=== PATIENT | male | born 1985 | race Caucasian/White ===

== ENCOUNTER 2017-01-02 12:42 | Emergency (ER) | payer SELFPAY ==
[2017-01-02] MEDS ORDERED: DILAUDID IM ONE (16:30)
[2017-01-02] MEDS ORDERED: DELTASONE PO ONE (16:30)
[2017-01-02] MEDS ORDERED: ZOFRAN ODT PO ONE (16:30)
[2017-01-02] MEDS ORDERED: VALIUM PO ONE (16:30)
--- NOTE | 2017-01-02 16:30 | Emergency Department Report ---
ED Extremity Problem HPI - General Chief complaint: Extremity Injury, Lower Stated complaint: RT KNEE PAIN Time Seen by Provider: 01/02/17 16:18 Source: patient, family, EMS Mode of arrival: Wheelchair Limitations: Physical Limitation - History of Present Illness Initial comments: Patient here reports that he came by ambulance for Rt knee pain. She reports that his knee pain has been going on for a long time due to meniscus injury. He said that he ran out of his Lortab. He said he was recently admitted said [facility] psychiatric unit 4 months for depression, anxiety and insomnia. Said that they gave her a prescription for Lortab but he ran out. Reports his right knee pain is 10 out of 10 and achy and and swollen. Eyes any recent injury. He said his right knee pain flares With weather change. Denies any numbness or tingling to extremities. Denies any fever or chills. Denies any nausea vomiting. He said he does not have a primary care physician because his insurance ran out and he is trying to get reinstated. MD Complaint: extremity pain, joint swelling, joint paint -: year(s) Location: right, knee History of Same: Yes -: No myalgia, Yes arthralgia, No fever, No associated dyspnea, No associated chest pain Radiation: none Severity scale (0 -10): 10 Quality: aching Consistency: constant Improves with: nothing Worsens with: weight bearing, walking, palpation Associated Symptoms: denies other symptoms - Related Data Home Medications Medication Instructions Recorded Confirmed Last Taken HYDROcodone/APAP 10-325 [[place] 1 PO PRN 01/02/17 01/01/17 10-325 mg TAB] Previous Rx's Medication Instructions Recorded Last Taken Type traMADol [Ultram] 50 mg PO Q6HR PRN #20 tablet 01/02/17 Unknown Rx Allergies Allergy/AdvReac Type Severity Reaction Status Date / Time No Known Allergies Allergy Unverified 01/02/17 13:06 ED Review of Systems ROS: Stated complaint: RT KNEE PAIN Other details as noted in HPI Comment: All other systems reviewed and negative Constitutional: denies: chills, fever Respiratory: no symptoms reported Cardiovascular: denies: chest pain, palpitations, edema, syncope Gastrointestinal: denies: nausea, vomiting Musculoskeletal: joint swelling, arthralgia. denies: back pain, myalgia Skin: denies: rash Neurological: weakness (right knee which is chronic), abnormal gait (due to right knee pain). denies: headache, numbness, paresthesias, confusion ED Past Medical Hx - Past Medical History Previous Medical History?: Yes Hx Seizures: Yes Hx Psychiatric Treatment: Yes (anxiety, depression, insomnia, suicidal) Additional medical history: right knee pain - Surgical History Past Surgical History?: Yes Additional Surgical History: right knee surgery, Back surgery - Family History Family history: hypertension - Social History Smoking Status: Former Smoker Substance Use Type: Marijuana, Prescribed - Medications Home Medications: Home Medications Medication Instructions Recorded Confirmed Last Taken Type HYDROcodone/APAP 10-325 [[place] 1 PO PRN 01/02/17 01/01/17 History 10-325 mg TAB] traMADol [Ultram] 50 mg PO Q6HR PRN #20 tablet 01/02/17 Unknown Rx ED Physical Exam - General Limitations: Physical Limitation (he said that he mostly uses a wheelchair due to chronic pain.) General appearance: alert, in no apparent distress - Head Head exam: Present: atraumatic, normocephalic, normal inspection - Expanded Lower Extremity Exam Right Hip exam: Present: normal inspection, full ROM. Absent: tenderness, swelling, abrasion, laceration, ecchymosis, deformity, crepidus, dislocation, erythema, external rotation, internal rotation, shortening, pelvic stability Upper Leg exam: Present: normal inspection, full ROM. Absent: tenderness, swelling, abrasion, laceration, ecchymosis, deformity, crepidus, dislocation, erythema Knee exam: Present: normal inspection, tenderness (tender to palpate anterior knee), pain w/ pronation/supination, full knee extension (patient able to flex is right knee without any difficulties and able to extend his right knee but reports that painful.). Absent: full ROM (Limited range of motion to right knee due to pain), swelling, abrasion, laceration, ecchymosis, deformity, crepidus, dislocation, erythema, effusion, pain/laxity with valgus, pain/laxity with varus Lower Leg exam: Present: normal inspection, full ROM. Absent: tenderness, swelling, abrasion, laceration, ecchymosis, deformity, crepidus, dislocation, erythema, palpable cord, Don's sign Ankle exam: Present: normal inspection, full ROM. Absent: tenderness, swelling , abrasion, laceration, ecchymosis, deformity, crepidus, dislocation, erythema, anterior draw sign Foot/Toe exam: Present: normal inspection, full ROM. Absent: tenderness, swelling, abrasion, laceration, ecchymosis, deformity, crepidus, dislocation, erythema, amputation, puncture wound, foreign body, nail avulsion, subungual hematoma Neuro vascular tendon exam: Present: no vascular compromise. Absent: pulse deficit, abnormal cap refill, motor deficit, sensory deficit, tendon deficit, extremity cold to touch, pallor, abnormal 2-point discrimination, decreased fine /light touch, foot drop, peroneal nerve deficit, significant pain with passive ROM of distal joint Gait: Positive: antalgic - Back Exam Back exam: Present: normal inspection, full ROM, other (noted healed scar from previous back surgery). Absent: tenderness, CVA tenderness (R), CVA tenderness (L), muscle spasm, paraspinal tenderness, vertebral tenderness - Neurological Exam Neurological exam: Present: alert, oriented X3, normal gait, reflexes normal. Absent: motor sensory deficit - Psychiatric Psychiatric exam: Present: normal affect, normal mood - Skin Skin exam: Present: warm, dry, intact, normal color. Absent: rash ED Course Vital Signs 01/02/17 13:07 Temperature 98.8 F Pulse Rate 100 H Respiratory 20 Rate Blood Pressure 107/69 O2 Sat by Pulse 100 Oximetry - Reevaluation(s) Reevaluation #1: 01/02/17 17:40 Patient friend called via phone and said that patient Here and says patient his suicidal. Went to discuss the issue with patient and patient denies being suicidal or homicidal. He denies calling anyone to let them know that he is suicidal he said he just wants pain medication which was just given to him. Patient denies any hallucination. Discussed with patient at length that if he feels suicidal he Need to let us know so we can take care of him but he said he is definitely not suicidal. Reevaluation #2: 01/02/17 18:06 Patient given Dilaudid 1 mg IM, Deltasone 60 mg by mouth, Zofran 8 mg ODT and Valium 10 mg by mouth. Patient again says that he is not suicidal or homicidal. 01/02/17 18:07 Reevaluation #3: 01/02/17 18:13 Patient was relief with pain from a 10 out of 10 to a 4 out of 10 after medication given. ED Medical Decision Making - Medical Decision Making ED course: Patient with acute exacerbation of chronic knee pain. His friend called in and said that patient Her and said that she was suicidal but I went in and asked patient to his friend in the room if he suicidal or homicidal and he said he does not want to kill himself or anyone else. She reports that he is in a lot of pain and he denies reporting this to his friend. Patient will be discharged home with prescription for Ultram and to follow-up with [facility] who will refer him to the pain clinic for management of his chronic pain. Pt voice understanding of diagnosis and treatment plan and said he'll call [facility] to schedule an appointment. I indicated to the hospital with his and discharged home in stable condition with his . Critical care attestation.: If time is entered above; I have spent that time in minutes in the direct care of this critically ill patient, excluding procedure time. ED Disposition Clinical Impression: Arthralgia of right knee Chronic pain Qualifiers: Chronic pain type: other chronic pain Qualified Code(s): G89.29 - Other chronic pain Disposition: DISCHARGED TO HOME OR SELFCARE Is pt being admited?: No Does the pt Need Aspirin: No Condition: Stable Instructions: Arthralgia (ED), Knee Pain (ED), Knee Exercises (GEN) Additional Instructions: Please follow-up with [facility] as discussed for primary care visit and facial be able to refer you to a pain specialist. Take Ultram as prescribed for pain. Prescriptions: traMADol [Ultram] 50 mg PO Q6HR PRN #20 tablet PRN Reason: Pain Referrals: [facility] [Outside] - 2-3 Days [facility] [Outside] - 2-3 Days ALLEN CRUZ MD [Staff Physician] - 2-3 Days
[2017-01-02 18:38] VITALS: BP 133/84
== END 2017-01-02 18:39 | disposition home or self-care (01) ==
LOC: ED 12:42
DX: M25.561 Pain in right knee (principal); G89.29 Other chronic pain; F32.9 Major depressive disorder, single episode, unspecified; F41.9 Anxiety disorder, unspecified; Z87.891 Personal history of nicotine dependence; F12.10 Cannabis abuse, uncomplicated
CPT/HCPCS: 96372; 99283; J1170; J7512; Q0162

== ENCOUNTER 2017-01-06 15:22 | Emergency (ER) | payer SELFPAY ==
[2017-01-06 16:25] LABS: Basophils % (Auto) 0.6 % (0.0-1.8); Hematocrit 39.1 % (35.5-45.6); Hemoglobin 13.4 gm/dl (11.8-15.2); Mean Corpuscular HGB Conc 34 % (32-34); Mean Corpuscular Hemoglobin 30 pg (28-32); Mean Corpuscular Volume 86 fl (84-94); Platelet Count 200 K/mm3 (140-440); Red Blood Count 4.53 M/mm3 (3.65-5.03); Red Cell Distribution Width 14.2 % (13.2-15.2); White Blood Count 10.6 K/mm3 (4.5-11.0)
[2017-01-06 16:49] LABS: Anion Gap 17 mmol/L; BUN/Creatinine Ratio 18.75; Blood Urea Nitrogen 15 mg/dL (9-20); Calcium 8.6 mg/dL (8.4-10.2); Carbon Dioxide 25 mmol/L (22-30); Chloride 104.4 mmol/L (98-107); Glucose 84 mg/dL (75-100); Potassium 4.1 mmol/L (3.6-5.0); Sodium 142 mmol/L (137-145)
[2017-01-06 17:26] LABS: Urine Drugs of Abuse Note Disclamer
[2017-01-06 17:41] LABS: Bilirubin,Urine NEG (Negative); Blood,Urine SM (Negative); Ketones,Urine NEG (Negative); Leukocyte Esterase,Urine TR (Negative); Mucus,Urine 1+ /HPF; Nitrite,Urine NEG (Negative); Protein,Urine <15 mg/dL mg/dL (Negative); Urobilinogen,Urine < 2.0 mg/dL (<2.0)
--- NOTE | 2017-01-06 20:24 | Emergency Department Report ---
HPI - General Chief Complaint: Psych Time Seen by Provider: 01/06/17 20:10 - HPI HPI: [facility] The patient is a 31-year-old male presenting with a chief complaint anxiety. The patient states he recently moved from [place] to [place] approximately 2 weeks ago. Patient states she hasn't had any is medication since that time. The patient states for the past 2 weeks his been anxious and "cannot stay still. " The patient states his girlfriend tells him he is "unbearable." Patient states he did not arrange to have psychiatrists in [place]. Patient denies suicidal or homicidal ideation. Patient denies auditory or visual hallucinations Location: Mental State Duration: 2 Weeks Quality: Anxious Severity: Moderate Modifying factors: [see above] Context: [see above] Mode of transportation: [not driving] ED Past Medical Hx - Past Medical History Hx Seizures: Yes Hx Psychiatric Treatment: Yes (anxiety, depression, insomnia, suicidal) Additional medical history: right knee pain. CHRONIC PAIN - Surgical History Past Surgical History?: No Additional Surgical History: right knee surgery, Back surgery L4-L5. CIRCUMCISION. VASECTOMY - Family History Family history: no significant - Social History Smoking Status: Never Smoker Substance Use Type: Marijuana - Medications Home Medications: Home Medications Medication Instructions Recorded Confirmed Last Taken Type HYDROcodone/APAP 10-325 [[place] 1 PO PRN 01/02/17 01/01/17 History 10-325 mg TAB] traMADol [Ultram] 50 mg PO Q6HR PRN #20 tablet 01/02/17 Unknown Rx LORazepam [Ativan] 0.5 mg PO QHS #5 tab 01/06/17 Unknown Rx Sertraline [Zoloft] 25 mg PO QDAY #30 tab 01/06/17 Unknown Rx traZODone [Desyrel] 100 mg PO QHS #10 tablet 01/06/17 Unknown Rx ED Review of Systems ROS: Stated complaint: MH/EVAL Other details as noted in HPI Comment: All other systems reviewed and negative Constitutional: denies: chills, fever Eyes: denies: eye pain, eye discharge, vision change ENT: denies: ear pain, throat pain Respiratory: denies: cough, shortness of breath, wheezing Cardiovascular: denies: chest pain, palpitations Endocrine: no symptoms reported Gastrointestinal: denies: abdominal pain, nausea, diarrhea Genitourinary: denies: urgency, dysuria Musculoskeletal: denies: back pain, joint swelling, arthralgia Skin: denies: rash, lesions Neurological: denies: headache, weakness, paresthesias Psychiatric: anxiety. denies: auditory hallucinations, visual hallucinations, homicidal thoughts, suicidal thoughts Hematological/Lymphatic: denies: easy bleeding, easy bruising Physical Exam - Physical Exam Vital Signs: Vital Signs 01/06/17 16:03 Temperature 98.6 F Pulse Rate 86 Respiratory 17 Rate Blood Pressure 139/88 O2 Sat by Pulse 100 Oximetry Physical Exam: GENERAL: The patient is well-developed well-nourished male sitting in chair not appearing to be in acute distress. [] HEENT: Normocephalic. Atraumatic. Extraocular motions are intact. Patient has moist mucous membranes. NECK: Supple. Trachea midline CHEST/LUNGS: Clear to auscultation. There is no respiratory distress noted. HEART/CARDIOVASCULAR: Regular. There is no tachycardia. There is no gallop rub or murmur. ABDOMEN: Abdomen is soft, nontender. Patient has normal bowel sounds. There is no abdominal distention. SKIN: There is no rash. There is no edema. There is no diaphoresis. NEURO: The patient is awake, alert, and oriented. The patient is cooperative. Moves s all extremities well. The patient has normal speech and gait. MUSCULOSKELETAL: There is no evidence of acute injury. ED Course Vital Signs 01/06/17 16:03 Temperature 98.6 F Pulse Rate 86 Respiratory 17 Rate Blood Pressure 139/88 O2 Sat by Pulse 100 Oximetry ED Medical Decision Making - Lab Data Result diagrams: 01/06/17 16:11 01/06/17 16:11 Laboratory Tests 01/06/17 01/06/17 01/06/17 16:11 16:11 16:11 WBC 10.6 RBC 4.53 Hgb 13.4 Hct 39.1 MCV 86 MCH 30 MCHC 34 RDW 14.2 Plt Count 200 Lymph % (Auto) 16.7 [place] % (Auto) 4.8 Eos % (Auto) 2.0 Baso % (Auto) 0.6 Lymph # 1.8 [place] # 0.5 Eos # 0.2 Baso # 0.1 Seg Neutrophils % 75.9 H Seg Neutrophils # 8.1 H Sodium 142 Potassium 4.1 Chloride 104.4 Carbon Dioxide 25 Anion Gap 17 BUN 15 Creatinine 0.8 Estimated GFR > 60 BUN/Creatinine Ratio 18.75 Glucose 84 Calcium 8.6 Urine Color Urine Turbidity Urine pH Ur Specific [place] Urine Protein Urine Glucose (UA) Urine Ketones Urine Blood Urine Nitrite Urine Bilirubin Urine Urobilinogen Ur Leukocyte Esterase Urine WBC (Auto) Urine RBC (Auto) U Epithel Cells (Auto) Urine Mucus Urine Opiates Screen Urine Methadone Screen Ur Barbiturates Screen Ur Phencyclidine Scrn Ur Amphetamines Screen U Benzodiazepines Scrn Urine Cocaine Screen U Marijuana (THC) Screen Drugs of Abuse Note Plasma/Serum Alcohol < 0.01 01/06/17 01/06/17 Unknown Unknown WBC RBC Hgb Hct MCV MCH MCHC RDW Plt Count Lymph % (Auto) [place] % (Auto) Eos % (Auto) Baso % (Auto) Lymph # [place] # Eos # Baso # Seg Neutrophils % Seg Neutrophils # Sodium Potassium Chloride Carbon Dioxide Anion Gap BUN Creatinine Estimated GFR BUN/Creatinine Ratio Glucose Calcium Urine Color Yellow Urine Turbidity Clear Urine pH 5.0 Ur Specific [place] 1.018 Urine Protein <15 mg/dl Urine Glucose (UA) Neg Urine Ketones Neg Urine Blood Sm Urine Nitrite Neg Urine Bilirubin Neg Urine Urobilinogen < 2.0 Ur Leukocyte Esterase Tr Urine WBC (Auto) 9.0 H Urine RBC (Auto) 4.0 U Epithel Cells (Auto) < 1.0 Urine Mucus 1+ Urine Opiates Screen Presumptive negative Urine Methadone Screen Presumptive negative Ur Barbiturates Screen Presumptive negative Ur Phencyclidine Scrn Presumptive negative Ur Amphetamines Screen Presumptive negative U Benzodiazepines Scrn Presumptive positive Urine Cocaine Screen Presumptive negative U Marijuana (THC) Screen Presumptive positive Drugs of Abuse Note Disclamer Plasma/Serum Alcohol - Differential Diagnosis anxiety, malingering Critical care attestation.: If time is entered above; I have spent that time in minutes in the direct care of this critically ill patient, excluding procedure time. ED Disposition Clinical Impression: Anxiety Disposition: ELOPED Is pt being admited?: No Does the pt Need Aspirin: No Condition: Stable Instructions: Anxiety (ED) Additional Instructions: Return to the emergency department immediately should you develop worsening symptoms, fever, inability to tolerate food or liquid or any other concerns. Prescriptions: LORazepam [Ativan] 0.5 mg PO QHS #5 tab Sertraline [Zoloft] 25 mg PO QDAY #30 tab traZODone [Desyrel] 100 mg PO QHS #10 tablet [facility] Days KIMMY HERNANDEZ MD [Staff Physician] - 3-5 Days (Dr Hernandez is a primary physician. Please follow up with him to be established as a patient) Time of Disposition: 21:28 (patient eloped prior to receiving prescriptions or MH evaluation)
[2017-01-06 20:44] VITALS: BP 128/73
== END 2017-01-06 21:25 | disposition left against medical advice (07) ==
LOC: ED 15:22
DX: F41.9 Anxiety disorder, unspecified (principal); F32.9 Major depressive disorder, single episode, unspecified; R45.851 Suicidal ideations; F12.10 Cannabis abuse, uncomplicated
CPT/HCPCS: 36415; 80048; 80307; 81001; 85025; 99284; G0480; 80320